=== PATIENT | male | born 2000 | race Caucasian/White ===

== ENCOUNTER 2020-05-28 18:46 | Emergency (ER) | payer OTHER ==
[~2020-05-28] VITALS: Ht 182.8 cm; Wt 65.8 kg
[~2020-05-28 18:46] MED LIST: CLARITIN10 MG PO; DURICEF250 MG/5 M PO; NASONEX0.05 MG/AC NS; PHENERGAN W/DM120 ML PO; Zithromax200 MG/5 M PO
[2020-05-28 18:53] VITALS: BP 132/77
== END 2020-05-28 20:53 | disposition home or self-care (01) ==
LOC: ED 18:46
DX: S00.93XA Contusion of unspecified part of head, initial encounter (principal); Z79.899 Other long term (current) drug therapy; V89.2XXA Person injured in unspecified motor-vehicle accident, traffic, initial encounter; Y93.89 Activity, other specified; Y92.89 Other specified places as the place of occurrence of the external cause; Y99.8 Other external cause status

== ENCOUNTER → 2022-07-12 | Outpatient (CLI) | payer OTHER | END | disposition home or self-care (01) | LOC: RAD 16:56 | PROVIDERS: ATTEND Family Medicine | DX: M25.512 Pain in left shoulder (principal) ==